=== PATIENT | female | born 1960 | race Caucasian/White ===

== ENCOUNTER 2019-09-02 11:38 | Inpatient (IN) | payer BC ==
--- NOTE | 2019-09-02 12:38 | ED ---
Shortness of Breath - HPI Summary HPI Summary: Patient is a 59 y/o F presenting to the ED for a chief complaint of shortness of breath on exertion and with talking for the last 2 days. Patient is present with her partner. Patient was previously seen in [place] and diagnosed with MAC. Patient was given a treatment plan, but patient declined treatment which she attributes to the success rate of treatment. Patient states she had a two lung CT performed at another facility and was told to follow up with a specialist. Patient saw a noteman in [place] in June and Jul. Pt states she did not like the MD- states was disrespectful and felt she lied. Pt is looking for a new pcp and new pulmonolist in the [place] area - moving here with her sons. Patient denies any aggravating or alleviating factors. Patient reports difficulty in getting an appointment with a PCP. While in [place], patient stated if she didn't get help today would kill her self and she left the [place] - pt was brought immediately back and placed on mental health 1:1. Upon discussion with me, pt states has a history of anxiety and depression. Pt states she thinkgs she might have to stay "is the psych [place]" States feels overwhelmed and stressed. Pt has not attempted self harm Meds reviewed - several supplements - History of Current Complaint Chief Complaint: EDShortnessOfBreath Time Seen by Provider: 09/02/19 12:35 Hx Obtained From: Patient Onset/Duration: Still Present Current Severity: Moderate Dyspnea At: Other - While talking Aggravating Factors: Nothing Alleviating Factors: Nothing Associated Signs & Symptoms: Negative - Allergy/Home Medications Allergies/Adverse Reactions: Allergies Allergy/AdvReac Type Severity Reaction Status Date / Time morphine Allergy Muscle Ache Verified 09/02/19 11:46 Home Medications: Home Medications Albuterol HFA INHALER* [Ventolin HFA Inhaler*] 2 puff INH Q6H PRN 09/02/19 [ History Confirmed 09/02/19] Budesonide/Formote 80/4.5(NF) [Symbicort 80/4.5 (NF)] 1 puff INH BID 09/02/19 [ History Confirmed 09/02/19] Loratadine 10 mg PO DAILY 09/02/19 [History Confirmed 09/02/19] PMH/Surg Hx/FS Hx/Imm Hx Previously Healthy: Yes Endocrine/Hematology History: Denies: Hx Diabetes Cardiovascular History: Denies: Hx Hypercholesterolemia, Hx Hypertension Respiratory History: Reports: Hx Asthma, Other Respiratory Problems/Disorders - Hx MAC Sensory History: Denies: Hx Legally Blind, Hx Deafness Opthamlomology History: Denies: Hx Legally Blind EENT History: Denies: Hx Deafness Psychiatric History: Reports: Hx Anxiety, Hx Depression - Surgical History Surgical History: None Surgery Procedure, Year, and Place: None Infectious Disease History: No Infectious Disease History: Denies: Traveled Outside the [place] in Last 30 Days - Family History Known Family History: Negative: Hypertension, Diabetes - Social History Occupation: Unemployed Lives: With Family Alcohol Use: None Hx Substance Use: No Substance Use Type: Reports: None Hx Tobacco Use: No Smoking Status (MU): Never Smoked Tobacco Review of Systems Constitutional: Negative Positive: Shortness Of Breath Positive: Other - Positive SI All Other Systems Reviewed And Are Negative: Yes Physical Exam - Summary Physical Exam Summary: Vital Signs Reviewed: Yes A+Ox3 intermittnetly suspicious of me and then tearful and accepting help throughout interview Eyes: Conjunctiva Clear, CHARITO. EOM intact and full ENT: Hearing grossly normal mmoist, Neck: Positive: Supple Respiratory: Positive: No respiratory distress, No accessory muscle use + CTA throughout no w/r Cardiovascular: RRR nl s1, s2 no m/r CBT <2 sec abd soft + BS nt/nd no guarding, no distension Musculoskeletal Exam: BASS x 4 without difficulty Strength Intact, ROM Intact Neurological: Positive: Alert, + sensation throughout Psychological: Positive: suspicious, tearful, intermittently angry talking about doctor in [place] Skin: Positive: no rash, no ecchymosis Triage Information Reviewed: Yes Vital Signs On Initial Exam: Initial Vitals Temp Pulse Resp BP Pulse Ox 97.8 F 64 18 140/77 99 09/02/19 11:41 09/02/19 11:41 09/02/19 11:41 09/02/19 11:41 09/02/19 11:41 Vital Signs Reviewed: Yes Procedures - Sedation Patient Received Moderate/Deep Sedation with Procedure: No Diagnostics - Vital Signs Vital Signs Temp Pulse Resp BP Pulse Ox 09/02/19 11:41 97.8 F 64 18 140/77 99 - Laboratory Result Diagrams: 09/02/19 13:25 09/02/19 13:25 Lab Statement: Any lab studies that have been ordered have been reviewed, and results considered in the medical decision making process. - Radiology Chest X-ray Radiology Interpretation Completed By: Radiologist Summary of Radiographic Findings: Chest X-ray IMPRESSION: NO ACTIVE CARDIOPULMONARY DISEASE. EVIDENCE OF EXPOSURE TO GRANULOMATOUS DISEASE. Reviewed by ED physician. Re-Evaluation - Re-Evaluation First Re-Evaluation Time: 13:11 Change: Unchanged Comment: At 13:11, patient is medially cleared for a evaluation. evaluated to see her Second Re-Evaluation Time: 14:10 Change: Unchanged Comment: At 14:10, [facility]erral [facility] made an appointment on the behalf of the patient with Dr. Antunez at 13:00 on 09/07/19 if patient is discharged. labs non concerning. awaiting urine Third Re-Evaluation Time: 14:48 Change: Unchanged Comment: At 14:48, after much discussion, patient agreed to take Cephalexin for her UTI. will admitted to mental health - voluntary Course/Dx - Course Course Of Treatment: Pt presents to ED requesitng evaluation by pulmonology. Pt with a h/o MAC (verified by previousl records from OSH) -declned treatment. Pt moved to [place] and would like to see a specialist. Pt states she thinks about dying if she is unable to get an appointment. Pt state she is feeling overwhlemed. after discusison, pt in agreement to see and mental health evaluation. will check labs reviewed records will work to get her a followup appt with the [facility] - pt in agremeent and comfort with plan - Diagnoses Provider Diagnoses: Adjustment disorder, UTI (urinary tract infection) - Physician Notifications Discussed Care of Patient With: [facility] Referral [facility] Time Discussed With Above Provider: 13:50 - At 13:50, I spoke with Kathy Moreno at the physician referral center who will schedule an appointment for Saturday and will facilitate a pulmonology referral. If patient stays with , appointment will be changed. At 14:44, grocery clerk selling reports that patients case was reviewed by Dr. Eddi Becerril who will admit the patient to [facility] with a diagnosis of adjustment disorder. Discharge ED - Sign-Out/Discharge Documenting (check all that apply): Patient Departure - Admit - Discharge Plan Condition: Stable Disposition: PSYCHIATRIC FACILITY-[facility] - Billing Disposition and Condition Condition: STABLE Disposition: Psychiatric Facility [facility] - Attestation Statements Document Initiated by Scribe: Yes Documenting Scribe: Caitlin Balderas Provider For Whom Scribe is Documenting (Include Credential): Jimena Wills MD Scribe Attestation: Caitlin Julian, scribed for Jimena Wills MD on 09/03/19 at 2044. Scribe Documentation Reviewed: Yes Provider Attestation: The documentation as recorded by the Caitlin ladna accurately reflects the service I personally performed and the decisions made by , Jimena Wills MD Status of Scribe Document: Viewed
[2019-09-02 13:33] LABS: ABS Eosinophils 0.2 10^3/ul (0-0.6); ABS Lymphocytes 1.8 10^3/ul (1.0-4.8); ABS Monocytes 0.5 10^3/ul (0-0.8); ABS Neutrophils 4.7 10^3/ul (1.5-7.7); Eosinophil % 2.2 %; Hematocrit 40 % (35-47); Hemoglobin 13.9 g/dL (12.0-16.0); Lymphocyte % 25.2 %; Mean Corpuscular HGB Conc 34 g/dL (31-36); Mean Corpuscular Hemoglobin 30 pg (27-31); Mean Corpuscular Volume 87 fL (80-97); Mean Platelet Volume 7.6 fL (7.4-10.4); Nucleated Red Blood Cells % 0.1; Platelet Count 306 10^3/uL (150-450); Red Blood Count 4.66 10^6 /uL (3.70-4.87); Red Cell Distribution Width 13 % (10-15); White Blood Count 7.3 10^3/uL (3.5-10.8)
[2019-09-02 13:52] LABS: ALT 49 U/L (7-52); AST 33 U/L (13-39); Albumin 4.6 g/dL (3.2-5.2); Albumin/Globulin Ratio 1.8 (1-3); Alkaline Phosphatase 116 U/L (34-104); Anion Gap 7 mmol/L (2-11); BUN/Creatinine Ratio 10.3 (8-20); Blood Urea Nitrogen 8 mg/dL (6-24); CO2 Carbon Dioxide 27 mmol/L (22-32); Calcium 10.2 mg/dL (8.6-10.3); Chloride 110 mmol/L (101-111); EGFR African American 90.9 (>60); EGFR Non-African American 75.1 (>60); Globulin 2.6 g/dL (2-4); Glucose 93 mg/dL (70-100); Potassium 4.2 mmol/L (3.5-5.0); Sodium 144 mmol/L (135-145); Total Protein 7.2 g/dL (6.4-8.9)
[2019-09-02 13:59] LABS: Urine Appearance Cloudy; Urine Bacteria 1+ (Absent); Urine Bilirubin Negative (Negative); Urine Blood 3+ (Negative); Urine Color Yellow; Urine Glucose Negative (Negative); Urine Ketones Negative (Negative); Urine Nitrite Positive (Negative); Urine Protein 1+(30 mg/dL) (Negative); Urine Red Blood Cell 3+(>10/hpf) (Absent); Urine Specific Gravity 1.012 (1.010-1.030); Urine Squamous Epithelial Cell Present (Absent); Urine Urobilinogen Negative (Negative); Urine White Blood Cell 3+(>20/hpf) (Absent)
[2019-09-02 14:26] LABS: Urine Benzodiazepine Screen Presumptive Positive (None Detect); Urine Opiates Screen None Detected (None Detect)
[2019-09-02 14:46] LABS: Alcohol < 10 mg/dL (<10); Salicylate < 2.50 mg/dL (<30)
[2019-09-02] MEDS ORDERED: Cephalexin CAP* 500 MG PO ONE (14:49)
[2019-09-02 15:01] LABS: TSH (Thyroid Stimulating Horm) 1.73 mcIU/mL (0.34-5.60)
[2019-09-02] MEDS ORDERED: Al Hydrox/Mg Hydrox/Simet LIQ* 30 ML UDC PO PRN (15:17)
[2019-09-02] MEDS ORDERED: Acetaminophen TAB* 325 MG PO PRN (15:17)
[2019-09-02] MEDS ORDERED: Albuterol HFA INHALER* 8 gm MDI INH PRN (15:19)
[2019-09-02 15:26] LABS: Acetaminophen 0 mcg/mL
[2019-09-02] MEDS: Mometasone/Formoter 100/5 MDI INH SCH (18:27)
[2019-09-02] MEDS: Albuterol HFA INHALER* 8 gm MDI INH PRN (23:47)
[2019-09-03] MEDS: Mometasone/Formoter 100/5 MDI INH SCH ×2 (07:15→20:49)
[2019-09-03] MEDS: Albuterol HFA INHALER* 8 gm MDI INH PRN ×2 (09:11→14:31)
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
[2019-09-03] MEDS: Cetirizine* 10 MG TAB PO SCH (10:35)
[2019-09-03 11:55] LABS: HIV 4th Generation Nonreactive (Nonreactive)
[2019-09-03] MEDS: Escitalopram * 10 MG TAB PO SCH (13:09)
[2019-09-04] MEDS: Escitalopram * 10 MG TAB PO SCH (07:59)
[2019-09-04] MEDS: Cetirizine* 10 MG TAB PO SCH (07:59)
[2019-09-04] MEDS: Albuterol HFA INHALER* 8 gm MDI INH PRN ×2 (07:59→13:16)
[2019-09-04] MEDS: Mometasone/Formoter 100/5 MDI INH SCH (08:00)
[2019-09-04 08:37] VITALS: BP 128/66
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
--- NOTE | 2019-09-04 14:52 | CONS ---
CONSULTATION REPORT: DATE OF CONSULT: 09/04/19 REQUESTING PHYSICIAN: Dr. Perla. CONSULTING SERVICE: Infectious Disease. REASON FOR CONSULT: Mycobacterium avium. IMPRESSION: 1. By the patient's report, a history of dyspnea and a chest CT that showed nodular infiltrates in the bilateral lungs and a bronchoscopy with BAL that grew Mycobacterium avium with some level of antibiotic resistance. 2. Dyspnea. Her chest x-ray here is clear. I am not convinced that the degree of nodularity she likely had on her chest CT is total explanation for her dyspnea. 3. Depression. 4. Anxiety. RECOMMENDATIONS: She is going to be discharged from mental health services today and my office will contact her for followup appointment. We will obtain her prior records to review the CT and microbiology results. We discussed that Mycobacterium avium treatment is focused initially on airway clearance and symptom management and that antibiotics may be secondary and that there is no urgency to antibiotic treatment. We discussed that it does not typically progress to a fatal disease, though it can be a long-term problem to manage. HISTORY OF PRESENT ILLNESS: This is a 59-year-old woman admitted with suicidal ideation after a diagnosis of Mycobacterium avium infection. She apparently over a number of months has had dyspnea, some chest pain intermittently. No cough, sputum production, change in the quality of her voice or excessive throat clearing that she is aware of. Because of her dyspnea, she had a CT of the chest, which showed a nodular infiltrate she thinks on the right and the left that led to a bronchoscopy, the BAL grew Mycobacterium avium. Her mobile unit assistant in [place] who performed that procedure recommended antibiotic therapy for 12 to 18 months, which she was told may have low success rate and led her to be quite despondent. Here, chest x- ray showed some calcified granulomas, no infiltrate. She has been afebrile. She has no cough or chest pain. She does have intermittent shortness of breath. She notes that on her trails at home, she can walk a mile with minimal dyspnea. Her weight has been stable. Her energy is low, which is a longstanding issue for her. She does not have fevers, chills, or sweats. PAST MEDICAL HISTORY: 1. Anxiety. 2. Depression. ALLERGIES: MORPHINE caused muscle aches. MEDICATIONS: 1. Tylenol as needed. 2. Tums as needed. 3. Albuterol inhaler as needed. 4. Cetirizine daily. 5. Lexapro daily. 6. Mometasone/formoterol inhaler twice a day. SOCIAL HISTORY: She has been in [place], moving to [place] with her partner. She is a nonsmoker. Does smoke marijuana. FAMILY HISTORY: No recurrent infections. There is emphysema. REVIEW OF SYSTEMS: All negative except as noted above to a 14-point review of systems. PHYSICAL EXAM: Vital Signs: Temperature 37, heart rate 75, respiratory rate 16 , blood pressure 128/66, oxygen saturation 100% on room air. In general, she is awake, not in distress. Neurologic: She is oriented x3. Follows all commands. Moves all her extremities. HEENT: There is no conjunctival hemorrhage. Oropharynx without lesions. Neck is supple without mass. Heart is regular rate and rhythm without murmurs, rubs, or gallops. Lungs are clear to auscultation bilaterally. Abdomen: Soft, nontender, nondistended. There are bowel sounds present. Skin: There is no rash or splinter hemorrhage. LABORATORY DATA: White blood cell count 7, hemoglobin 13, platelets 306. Creatinine is 0.7. ALT 49. Please see impression and recommendations outlined above, which I have discussed with Dr. Perla. Thanks for asking me to see Ms. Calvert in consultation. TIME SPENT: 60 minutes spent [id number], greater than 50% in discussion and counseling regarding her recent Mycobacterium avium diagnosis. [id number]/[facility] #: [id number] MTDD
== END 2019-09-04 15:40 | disposition home or self-care (01) | DRG 751 ==
LOC: ED 11:38 → MERGE 15:17 → BSU 15:17 → ED 17:40
PROVIDERS: ADMIT Psychiatry & Neurology Psychiatry; ATTEND Psychiatry & Neurology Psychiatry
DX: F33.2 Major depressive disorder, recurrent severe without psychotic features (principal); A31.0 Pulmonary mycobacterial infection; R45.851 Suicidal ideations; R06.00 Dyspnea, unspecified; F41.9 Anxiety disorder, unspecified; Z88.5 Allergy status to narcotic agent; Z81.3 Family history of other psychoactive substance abuse and dependence; Z81.8 Family history of other mental and behavioral disorders
CPT/HCPCS: 36415; 71046; 80053; 80307; 80320; 80329; 81003; 81015; 84443; 85025; 87077; 87086; 87186; 87389; 99222; 99238; 99285; A9270-GY; G0480

== ENCOUNTER 2020-01-17 10:05 | Emergency (ER) | payer OTHER ==
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
[2020-01-17 11:24] LABS: ABS Eosinophils 0.1 10^3/ul (0-0.6); ABS Lymphocytes 1.4 10^3/ul (1.0-4.8); ABS Monocytes 0.4 10^3/ul (0-0.8); ABS Neutrophils 2.4 10^3/ul (1.5-7.7); Eosinophil % 2.7 %; Hematocrit 39 % (35-47); Hemoglobin 13.5 g/dL (12.0-16.0); Lymphocyte % 32.6 %; Mean Corpuscular HGB Conc 34 g/dL (31-36); Mean Corpuscular Hemoglobin 30 pg (27-31); Mean Corpuscular Volume 86 fL (80-97); Mean Platelet Volume 7.8 fL (7.4-10.4); Nucleated Red Blood Cells % 0.1; Platelet Count 290 10^3/uL (150-450); Red Blood Count 4.55 10^6 /uL (3.70-4.87); Red Cell Distribution Width 14 % (10-15); White Blood Count 4.3 10^3/uL (3.5-10.8)
[2020-01-17 11:40] LABS: Albumin 4.5 g/dL (3.2-5.2); Albumin/Globulin Ratio 1.7 (1-3); BUN/Creatinine Ratio 16.8 (8-20); C Reactive Protein 1.92 mg/L (<8.01); Calcium 10.4 mg/dL (8.6-10.3); EGFR African American 72.1 (>60); EGFR Non-African American 59.6 (>60); Globulin 2.6 g/dL (2-4); Influenza A Molecular Negative (Negative); Influenza B Molecular Negative (Negative); Potassium 4.4 mmol/L (3.5-5.0); Total Bilirubin 0.5 mg/dL (0.2-1.0); Total Protein 7.1 g/dL (6.4-8.9)
--- OUTSIDE RECORDS SUMMARY | 2020-01-17 12:25 | XMS REPORT | Continuity of Care Document ---
:1960 External Reference #:[id number] Author Name Ainsley Parr MD (transmitted by agent of provider Hellen Clifford) Address [address] 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 Problems Description No Information Available Social History Type Date Description Comments Sex Unknown ETOH Use Denies alcohol use Tobacco Use Start: Unknown Patient has never smoked Recreational Drug Use Regularly uses Marijuana Smoking Status Reviewed: 11/23/19 Patient has never smoked Exercise Type/Frequency Exercises regularly Allergies, Adverse Reactions, Alerts Active Allergies Reaction Severity Comments Date Morphine 10/08/2019 Codeine 10/08/2019 Inactive Allergies NKDA 10/08/2019 Medications Active Medications SIG Qnty Indications Ordering Provider Date Certavite/Antioxidan take one daily 30tabs Alexandra Vega, 11/06/2019 ts DO Tablets Vitamin C Immune take one daily 30units Alexandra Vega, 11/06/2019 Health DO 500mg Chewtabs Montelukast Sodium 1 by mouth every 30tabs Swati 10/26/2019 night PAU Lucero 10mg Tablets Ibuprofen 1 by mouth twice 20tabs Bairon D. 10/08/2019 600mg daily if needed Garth Dai Tablets Loratadine once a day for Unknown 10mg allergies as Capsules needed CBD Oil Unknown Immunizations Description No Information Available Vital Signs Date Vital Result Comment 11/23/2019 12:38pm Height 62 inches 5'2" Weight 149.00 lb Heart Rate 67 /min BP Systolic Sitting 122 mmHg BP Diastolic Sitting 78 mmHg O2 % BldC Oximetry 97 % BMI (Body Mass Index) 27.2 kg/m2 10/23/2019 10:40am Height 62 inches 5'2" Weight 140.00 lb Heart Rate 67 /min BP Systolic Sitting 140 mmHg BP Diastolic Sitting 80 mmHg O2 % BldC Oximetry 98 % BMI (Body Mass Index) 25.6 kg/m2 Results Test Acquired Date Facility Test Result H/L Range Note Laboratory test 10/23/2019 [facility] Alpha 1 121 mg/dL 100 - 190 [address] Antitry[place] A1a [place] [address] [phone] Anti Nuclear Antibody 0.2 U 2 Anca Panel For 10/23/2019 [facility] Myeloperoxidase AB < 0.2 U [address] [place] [address] [phone] Proteinase 3 AB < 0.2 U 4 CBC Auto 10/23/2019 [facility] White Blood 4.8 10^3/uL Normal 3.5-10.[address] [place] [address] [phone] Red Blood Count 4.51 10^6/uL Normal 3.70-4.87 Hemoglobin 13.7 g/dL Normal 12.0-16.0 Hematocrit 39 % Normal 35-47 Mean Corpuscular Volume 87 fL Normal 80-97 Mean Corpuscular Hemoglobin 30 pg Normal 27-31 Mean Corpuscular HGB Conc 35 g/dL Normal 31-36 Red Cell Distribution Width 13 % Normal 10-15 Platelet Count 335 10^3/uL Normal 150-450 Mean Platelet Volume 8.1 fL Normal 7.4-10.4 Abs Neutrophils 2.7 10^3/uL Normal 1.5-7.7 Abs Lymphocytes 1.7 10^3/uL Normal 1.0-4.8 Abs Monocytes 0.3 10^3/uL Normal 0-0.8 Abs Eosinophils 0.1 10^3/uL Normal 0-0.6 Abs Basophils 0.0 10^3/uL Normal 0-0.2 Abs Nucleated RBC 0.0 10^3/uL Granulocyte % 56.6 % Lymphocyte % 34.8 % Monocyte % 6.5 % Eosinophil % 1.6 % Basophil % 0.5 % Nucleated Red Blood Cells % 0.1 Laboratory test 10/23/2019 [facility] C Reactive 1.01 Normal < 8.[address] Protein mg/L [place], [place] [id number] [phone] Hypersensitivity 10/23/2019 [facility] Aspergillus 53.6 <= 102 [address] fumigatus IgG mg/[place] [address] Ab [phone] Micropolyspora faeni IgG Ab 2.9 mg/L <=13.2 6 Thermoactinomyces vulgaris IgG 5.8 mg/L <=23.9 7 Immunoglobulins 10/23/2019 [facility] Immunoglobulin G 671 Abnormal 767 - 8 Serum Quant [address] mg/dL 1590 [place] [address] [phone] Immunoglobulin M 92 mg/dL 37 - 286 Laboratory test 10/23/2019 [facility] Immunoglobulin E 33.4 kU/ L <= 214 [address] (Ige) [place] [address] [phone] Immunoglobulin A 170 mg/dL 61 - 356 Rheumatoid Factor < 10 IU/mL Normal <15 1 Test Performed by: [facility] [place] [address] Wheel Worker: Jeremie Jaffe M.D. Ph.D.; CLIA# [id number] 2 REFERENCE VALUE <=1.0 (Negative) Test Performed by: [facility] [place] [address] Wheel Worker: Jeremie Jaffe M.D. Ph.D.; CLIA# [id number] 3 REFERENCE VALUE <0.4 (Negative) 4 REFERENCE VALUE <0.4 (Negative) Test Performed by: [facility] [place] [address] Wheel Worker: Jeremie Jaffe M.D. Ph.D.; CLIA# [id number] 5 ADDITIONAL INFORMATION This test was developed and its performance characteristics determined by [facility] [place] in a manner consistent with CLIA requirements. This test has not been cleared or approved by the U.S. Food and Drug Administration. 6 ADDITIONAL INFORMATION This test was developed and its performance characteristics determined by [facility] [place] in a manner consistent with CLIA requirements. This test has not been cleared or approved by the U.S. Food and Drug Administration. 7 ADDITIONAL INFORMATION This test was developed and its performance characteristics determined by [facility] [place] in a manner consistent with CLIA requirements. This test has not been cleared or approved by the U.S. Food and Drug Administration. Test Performed by: [place] [address] Wheel Worker: Jeremie Jaffe M.D. Ph.D.; CLIA# [id number] 8 Test Performed by: [place] [address] Wheel Worker: Jeremie Jaffe M.D. Ph.D.; CLIA# [id number] Test Performed by: [place] [address] Wheel Worker: Jeremie Jaffe M.D. Ph.D.; CLIA# [id number] Procedures Date Code Description Status 11/12/2019 59009 Sleep Study Unattended,HRT Rate,Oxygen Sat,Resp Completed Effort/Airflow 06/04/2019 35050901 Colonoscopy Completed Medical Devices Description No Information Available Encounters Type Date Location Provider Dx Diagnosis Office Visit 11/23/2019 [facility] Jaxon Scott.8 Other nonspecific 3:30p [facility] Of abnormal finding of Hiv Cts Specialist lung field A31.0 Pulmonary mycobacterial infection J45.909 Unspecified asthma, uncomplicated G47.33 Obstructive sleep apnea (adult) (pediatric) Office Visit 10/23/2019 11:00a [facility] Ainsley R91.8 Other nonspecific Sleep Services Of MD Karolyn abnormal finding Hiv Cts Specialist of lung field A31.0 Pulmonary mycobacterial infection J45.909 Unspecified asthma, uncomplicated R06.83 Snoring J41.0 Simple chronic bronchitis Office Visit 10/08/2019 [facility] Bairon Vegas A31.0 Pulmonary 2:40p For Infectious Garth Dai mycobacterial Diseases infection R91.8 Other nonspecific abnormal finding of lung field Office Visit 10/08/2019 8:20a Hiv Cts Specialist Internal Alexandra A31.0 Pulmonary Medicine - DO Gary mycobacterial [address] infection Z12.31 Encntr screen mammogram for malignant neoplasm of breast H53.8 Other visual disturbances Office Visit 09/04/2019 [facility] Bairon [place] A31.0 Pulmonary 10:04a For Infectious Garth Dai mycobacterial Diseases infection R06.00 Dyspnea, unspecified F32.9 Major depressive disorder, single episode, unspecified Assessments Date Code Description Provider 11/23/2019 R91.8 Other nonspecific abnormal finding of Ainsley Parr MD lung field 11/23/2019 A31.0 Pulmonary mycobacterial infection Ainsley Parr MD 11/23/2019 J45.909 Unspecified asthma, uncomplicated Ainsley Parr MD 11/23/2019 G47.33 Obstructive sleep apnea (adult) Ainsley Parr MD (pediatric) 10/23/2019 R91.8 Other nonspecific abnormal finding of Ainsley Parr MD lung field 10/23/2019 A31.0 Pulmonary mycobacterial infection Ainsley Parr MD 10/23/2019 J45.909 Unspecified asthma, uncomplicated Ainsley Parr MD 10/23/2019 R06.83 Snoring Ainsley Parr MD 10/23/2019 J41.0 Simple chronic bronchitis Ainsley Parr MD 10/08/2019 A31.0 Pulmonary mycobacterial infection Bairon Dai M.D. 10/08/2019 A31.0 Pulmonary mycobacterial infection Alexandra Vega DO 10/08/2019 R91.8 Other nonspecific abnormal finding of Bairon Dai M.D. lung field 10/08/2019 Z12.31 Encounter for screening mammogram for Alexandra Vega, malignant neoplasm of breast 10/08/2019 H53.8 Other visual disturbances Alexandra Gary, DO 09/04/2019 A31.0 Pulmonary mycobacterial infection Bairon Dai M.D. 09/04/2019 R06.00 Dyspnea, unspecified Bairon Dai M.D. 09/04/2019 F32.9 Major depressive disorder, single Bairon Dai M.D. episode, unspecified Plan of Treatment Future Appointment(s):01/07/2020 3:30 pm - Ainsley Parr MD at [facility]01/07/2020 1:20 pm - Bairon Dai M.D. at [facility]25/20/2020 - Ainsley Parr, MDR91.8 Other nonspecific abnormal finding of lung fieldFollow up:6 etkhfC16.0 Pulmonary mycobacterial ntadewnnqF87.909 Unspecified asthma, obaqyyzxevamzW02.33 Obstructive sleep apnea (adult) (pediatric) Functional Status Description No Information Available Mental Status Description No Information Available Referrals Refer to Dr Reason for Referral Status Appt Wolf Campos MD Sent [address] [place], [place] [id number] [phone] Bairon Dai MD Scheduled 01/07/[address] [place] [address] [place] [address] [phone] Michael Kelyl MD Pending OV note to be signed. Triage sent. 10/16/19 Sent [facility] [place] [address] [phone] Ainsley Parr MD 59 year old woman with diagnosis of ARIEL by Sent 2018 bronchoscopy new lung lesions [address] [place] [id number] [phone]
--- OUTSIDE RECORDS SUMMARY | 2020-01-17 12:25 | XMS REPORT | Continuity of Care Document ---
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 Problems Description No Information Available Social History Type Date Description Comments Sex Unknown ETOH Use Denies alcohol use Tobacco Use Start: Unknown Patient has never smoked Recreational Drug Use Regularly uses Marijuana Smoking Status Reviewed: 01/07/20 Patient has never smoked Exercise Type/Frequency Exercises regularly Allergies, Adverse Reactions, Alerts Active Allergies Reaction Severity Comments Date Morphine 10/08/2019 Codeine 10/08/2019 Inactive Allergies NKDA 10/08/2019 Medications Active Medications SIG Qnty Indications Ordering Date Provider Ulysses Allergy & 1 by mouth twice a 60tabs Alexandra Vega, 12/21/2019 Congestion day DO 5-120mg Tablets ER 12HR Symbicort inhale two puffs 30.6gm Ainsley Parr, 11/23/2019 by mouth twice a 80-4.5mcg/Act day Aerosol Ventolin HFA 1 to 2 inhalations 18gm Ainsley Parr, 11/23/2019 every 4 hours as 108(90Base) mcg/Act needed Aerosol Certavite/Antioxidan take one daily 30tabs Bowen Antunez MD 11/06/2019 ts Tablets Vitamin C Immune take one daily 30units Alexandra Vega, 11/06/2019 Health DO 500mg Chewtabs Montelukast Sodium take 1 tablet by 30tabs Swati 10/26/2019 mouth every Jazmine, [employer]CRA[employer]ESS [employer] 10mg Tablets evening Ibuprofen 1 by mouth twice 40tabs Bowen Antunez MD 10/08/2019 600mg daily if needed Tablets Loratadine once a day for Unknown 10mg allergies as Capsules needed CBD Oil Unknown Bupropion take 1 tablet by Unknown Hydrochloride ER mouth once daily (XL) 150mg Tablets ER 24HR Diazepam take 1 tablet by Unknown 5mg Tablets mouth twice a day maximum daily dose of 2 Immunizations Description No Information Available Vital Signs Date Vital Result Comment 01/07/2020 2:44pm Height 62 inches 5'2" Weight 152.00 lb Heart Rate 89 /min BP Systolic Sitting 136 mmHg BP Diastolic Sitting 60 mmHg O2 % BldC Oximetry 96 % BMI (Body Mass Index) 27.8 kg/m2 11/23/2019 12:38pm Height 62 inches 5'2" Weight 149.00 lb Heart Rate 67 /min BP Systolic Sitting 122 mmHg BP Diastolic Sitting 78 mmHg O2 % BldC Oximetry 97 % BMI (Body Mass Index) 27.2 kg/m2 Results Test Acquired Date Facility Test Result H/L Range Note CBC Auto 12/02/2019 [facility] White Blood 4.9 10^3/uL Normal 3.5-10.[address] [place] [address] [phone] Red Blood Count 4.49 10^6/uL Normal 3.70-4.87 Hemoglobin 13.6 g/dL Normal 12.0-16.0 Hematocrit 39 % Normal 35-47 Mean Corpuscular Volume 86 fL Normal 80-97 Mean Corpuscular Hemoglobin 30 pg Normal 27-31 Mean Corpuscular HGB Conc 35 g/dL Normal 31-36 Red Cell Distribution Width 13 % Normal 10-15 Platelet Count 285 10^3/uL Normal 150-450 Mean Platelet Volume 8.6 fL Normal 7.4-10.4 Abs Neutrophils 2.5 10^3/uL Normal 1.5-7.7 Abs Lymphocytes 1.9 10^3/uL Normal 1.0-4.8 Abs Monocytes 0.4 10^3/uL Normal 0-0.8 Abs Eosinophils 0.1 10^3/uL Normal 0-0.6 Abs Basophils 0.0 10^3/uL Normal 0-0.2 Abs Nucleated RBC 0.0 10^3/uL Granulocyte % 51.7 % Lymphocyte % 37.7 % Monocyte % 7.6 % Eosinophil % 2.6 % Basophil % 0.4 % Nucleated Red Blood Cells % 0.0 Laboratory test 12/02/2019 [facility] Alternaria tenuis <0.35 kU /L [address] [place] [address] [phone] Silver Birch IgE <0.35 kU/L 2 Cat Epithelium Allergen IgE <0.35 kU/L 3 Cladosporium herbarum IgE <0.35 kU/L 4 Dermatophagoides farinae IgE <0.35 kU/L 5 Dermatophagoides pteronyssinus <0.35 kU/L 6 Dog Dander Allergen IgE <0.35 kU/L 7 Underwood Allergen IgE <0.35 kU/L 8 [place] Tree Allergen IgE <0.35 kU/L 9 Giant Ragweed Allergen IgE <0.35 kU/L 10 [place] Tree Allergen IgE <0.35 kU/L 11 Melecio Grass Allergen IgE <0.35 kU/L 12 Aspergilus [place] Ige Allergen QL <0.35 kU/L 13 Immunoglobulin E (Ige) 37.7 kU/L <= 214 14 Immunoglobulins 12/02/2019 [facility] Immunoglobulin G 667 Abnormal 767 - 15 Serum Quant [address] mg/dL 1590 [place] [address] [phone] Immunoglobulin M 90 mg/dL 37 - 286 Immunoglobulin A 166 mg/dL 61 - 356 T&B Cell 12/02/2019 [facility] CD45 Total 1.60 thou/mcL 0.82- 2.[address] [place] [address] [phone] Percent CD3 Cells (T Cells) 73 % 58-86 Percent CD19 Cells (B Cells) 10 % 3-24 % CD16+CD56 Cells (NK Cells) 16 % 5-28 Percent CD4 Cell (T Cell) 54 % 32-64 Percent CD8 Cells (T Cells) 25 % 8-40 CD3 (T Cells) 1168 cells/L 550-2202 CD19 (B Cells) 161 cells/L 45-409 CD16+CD56 Count (NK cells) 255 cells/L 59-513 CD4 (T Cell) 864 cells/L 365-1437 CD8 (T Cell) 403 cells/L 80-846 4/8 Ratio 2.1 >=0.9 T B Cell Comment See Comment 16 Diptheria Igg 12/02/2019 [facility] Diphtheria IgG Positive [address] [place] [address] [phone] Diphtheria IgG Value 0.05 IU/mL 18 Tetanus Toxoid Igg 12/02/2019 [facility] Tetanus Toxoid Positive 19 Antibody,S [address] [place] [address] [phone] Tetanus Toxoid IgG Value 1.29 IU/mL 20 S.Pneumoniae Igg 12/02/2019 [facility] S. pneumoniae 3.7 g/mL >=2.3 AB [address] Type 1 [place] [address] [phone] S. pneumoniae Type 2 IgG AB 0.7 g/mL >=1.0 S. pneumoniae Type 3 IgG AB 1.1 g/mL >=1.8 S. pneumoniae Type 4 IgG AB 6.7 g/mL >=0.6 S. pneumoniae Type 5 IgG AB 3.7 g/mL >=10.7 S. pneumoniae Type 8 IgG AB 2.9 g/mL >=2.9 S. pneumoniae Type 9N IgG AB 3.6 g/mL >=9.2 S. pneumoniae Type 12F IgG AB 0.4 g/mL >=0.6 S. pneumoniae Type 14 IgG AB 2.7 g/mL >=7.0 S. pneumoniae Type 17F IgG AB 3.9 g/mL >=7.8 S. pneumoniae Type 19F IgG AB 13.4 g/mL >=15.0 S. pneumoniae Type 20 IgG AB 1.9 g/mL >=1.3 S. pneumoniae Type 22F IgG AB 16.6 g/mL >=7.2 S. pneumoniae Type 23F IgG AB 14.8 g/mL >=8.0 S. pneumoniae Type 6B IgG AB 3.9 g/mL >=4.7 S. pneumoniae Type 10A IgG AB 5.7 g/mL >=2.9 S. pneumoniae Type 11A IgG AB 1.0 g/mL >=2.4 S. pneumoniae Type 7F IgG AB 8.0 g/mL >=3.2 S. pneumoniae Type 15B IgG AB 7.3 g/mL >=3.3 S. pneumoniae Type 18C IgG AB 3.2 g/mL >=3.3 S. pneumoniae Type 19A IgG AB 43.0 g/mL >=17.1 S. pneumoniae Type 9V IgG AB 23.2 g/mL >=2.6 S. pneumoniae Type 33F IgG AB 12.2 g/mL >=1.7 21 Lymphocyte 12/02/2019 [facility] Mitogens See Comment 22 Proliferation PNL [address] [place] [address] [phone] Viab of Lymphs at Day 0 72.7 % Abnormal >=75.0 Max Prolif of PWM as %CD45 18.4 % >=4.5 Max Prolif of PWM as %CD3 18.9 % >=3.5 Max Prolif of PWM as %CD19 32.0 % >=3.9 Max Prolif of Pha as %CD45 67.5 % >=49.9 Max Prolif of Pha as %CD3 71.2 % >=58.5 23 Laboratory test 10/23/2019 [facility] Alpha 1 121 mg/dL 100 - [address] Antitrypsin A1a 190 [place] [address] [phone] Anti Nuclear Antibody 0.2 U 25 Anca Panel For 10/23/2019 [facility] Myeloperoxidase AB < 0.2 U [address] [place] [address] [phone] Proteinase 3 AB < 0.2 U 27 CBC Auto 10/23/2019 [facility] White Blood 4.8 10^3/uL Normal 3.5-10.[address] [place] [address] [phone] Red Blood Count 4.51 10^6/uL Normal 3.70-4.87 [...] Blood Cells % 0.1 Laboratory test 10/23/2019 [facility] C Reactive 1.01 Normal < 8.[address] Protein mg/[place] [address] [phone] Hypersensitivity 10/23/2019 [facility] Aspergillus 53.6 <= 102 [address] fumigatus IgG mg/[place] [address] Ab [phone] Micropolyspora faeni IgG Ab 2.9 mg/L <=13.2 29 Thermoactinomyces vulgaris IgG 5.8 mg/L <=23.9 30 Immunoglobulins 10/23/2019 [facility] Immunoglobulin G 671 Abnormal 767 - 31 Serum Quant [address] mg/dL 1590 [place], [place] [address] [phone] Immunoglobulin M 92 mg/dL 37 - 286 Laboratory test 10/23/2019 [facility] Immunoglobulin E 33.4 kU/ L <= [address] (Ige) [place] [address] [phone] Immunoglobulin A 170 mg/dL 61 - 356 Rheumatoid Factor < 10 IU/mL Normal <15 1 Class 0 (Negative <0.35) Test Performed by: [place] [address] Software Firmware Engineer: Jeremie Jaffe M.D. Ph.D.; CLIA# [id number] 2 Class 0 (Negative <0.35) Test Performed by: [place] [address] Software Firmware Engineer: Jeremie Jaffe M.D. Ph.D.; CLIA# [id number] 3 Class 0 (Negative <0.35) Test Performed by: [place] [address] Software Firmware Engineer: Jeremie Jaffe M.D. Ph.D.; CLIA# [id number] 4 Class 0 (Negative <0.35) Test Performed by: [place] [address] Software Firmware Engineer: Jeremie Jaffe M.D. Ph.D.; CLIA# [id number] 5 Class 0 (Negative <0.35) Test Performed by: [place] [address] Software Firmware Engineer: Jeremie Jaffe M.D. Ph.D.; CLIA# [id number] 6 Class 0 (Negative <0.35) Test Performed by: [place] [address] Software Firmware Engineer: Jeremie Jaffe M.D. Ph.D.; CLIA# [id number] 7 Class 0 (Negative <0.35) Test Performed by: [place] [address] Software Firmware Engineer: Jeremie Jaffe M.D. Ph.D.; CLIA# [id number] 8 Class 0 (Negative <0.35) Test Performed by: [place] [address] Software Firmware Engineer: Jeremie Jaffe M.D. Ph.D.; CLIA# [id number] 9 Class 0 (Negative <0.35) Test Performed by: [place] [address] Software Firmware Engineer: Jeremie Jaffe M.D. Ph.D.; CLIA# [id number] 10 Class 0 (Negative <0.35) Test Performed by: [place] [address] Software Firmware Engineer: Jeremie Jaffe M.D. Ph.D.; CLIA# [id number] 11 Class 0 (Negative <0.35) Test Performed by: [place] [address] Software Firmware Engineer: Jeremie Jaffe M.D. Ph.D.; CLIA# [id number] 12 Class 0 (Negative <0.35) Test Performed by: [place] [address] Software Firmware Engineer: Jeremie Jaffe M.D. Ph.D.; CLIA# [id number] 13 Class 0 (Negative <0.35) Test Performed by: [place] [address] Software Firmware Engineer: Jeremie Jaffe M.D. Ph.D.; CLIA# [id number] 14 Test Performed by: [place] [address] Software Firmware Engineer: Jeremie Jaffe M.D. Ph.D.; CLIA# [id number] 15 Test Performed by: [place] [address] Software Firmware Engineer: Jeremie Jaffe M.D. Ph.D.; CLIA# [id number] 16 RESULT: Reviewed by: Job Reyes M.D. ADDITIONAL INFORMATION Reference values implemented February 24, 2013. This test was developed using an analyte specific reagent. Its performance characteristics were determined by [facility] in a manner consistent with CLIA requirements. This test has not been cleared or approved by the U.S. Food and Drug Administration. Test Performed by: [facility] - [address] [address] Software Firmware Engineer: Jeremie Jaffe M.D. Ph.D.; CLIA# [id number] 17 REFERENCE VALUE Vaccinated: Positive (>= 0.01 IU/mL) Unvaccinated: Negative (< 0.01 IU/mL) 18 ADDITIONAL INFORMATION This test was developed and its performance characteristics determined by [facility] in a manner consistent with CLIA requirements. This test has not been cleared or approved by the U.S. Food and Drug Administration. Test Performed by: [facility] [place] [address] Software Firmware Engineer: Jeremie Jaffe M.D. Ph.D.; CLIA# [id number] 19 REFERENCE VALUE Vaccinated: Positive (>= 0.01 IU/mL) Unvaccinated: Negative (< 0.01 IU/mL) 20 ADDITIONAL INFORMATION This test was developed and its performance characteristics determined by [facility] in a manner consistent with CLIA requirements. This test has not been cleared or approved by the U.S. Food and Drug Administration. Test Performed by: [facility] [place] [address] Software Firmware Engineer: Jeremie Jaffe M.D. Ph.D.; CLIA# [id number] 21 Either of the two following conditions would be consistent with a normal response to Streptococcus pneumoniae vaccination: Antibody concentrations greater than or equal to the reference value for at least 50% of serotypes in either a pre- or post-vaccination sample. Antibody concentrations increased by 2-fold or greater for at least 50% of serotypes when comparing the pre- to the post-vaccination results. Optimal cut-offs (reference values) were derived by measuring serotype-specific IgG antibody levels in an adult cohort of 100 healthy individuals (previously unvaccinated) before and after pneumococcal vaccination and identifying the antibody level for each serotype that included the largest number of individuals with a negative response (below cut-off) pre-vaccination and a positive response (above cut-off) post-vaccination. ADDITIONAL INFORMATION All 23 serotypes assessed by this assay are included in the Pneumovax 23 vaccine. IgG antibody concentrations following Pneumovax 23 administration are a reflection of an individual's humoral immune response to polysaccharide antigens. Serotypes 1, 3, 4, 5, 6A (6), 14, 19F (19), 23F (23), 6B (26), 7F (51), 18C (56), 19A (57) and 9V (68) are included in the Prevnar-13 conjugate vaccine. Antibody concentrations following Prevnar-13 administration are a reflection of an individual's response to protein-conjugated antigens. Serotypes 2, 8, 9N (9), 12F (12), 17F (17), 20, 22F (22), 10A (34), 11A (43), 15B (54) and 33F (70) are present only in the Pneumovax 23 vaccine and not in Prevnar-13. Responses to these 11 serotypes are a reflection of an individual's response to polysaccharide antigens. Serotype 6A is only present in Prevnar-13. This test was developed and its performance characteristics determined by [facility] in a manner consistent with CLIA requirements. This test has not been cleared or approved by the U.S. Food and Drug Administration. Test Performed by: [facility] [address] [place] [address] Software Firmware Engineer: Jeremie Jaffe M.D. Ph.D.; CLIA# [id number] 22 Normal lymphocyte proliferative responses to PHA and PWM. Day 0 viability for this patient was mildly below the reference cut-off value of >= 75%, but it did not affect the normal proliferative responses to PHA and PWM. Time elapsed from sample collection to arrival in the laboratory and/or transportation conditions may influence day 0 viability. Reviewed by: Job Reyes M.D. ADDITIONAL INFORMATION Reference values implemented November 22, 2010. Data are expressed as % proliferating cells of total specific cell population. The % Day 0 viability of the sample was determined using a flow cytometry assay which includes individual assessment of viable, apoptotic and cells. This method differs from the commonly used method of trypan blue dye exclusion which only identifies cells, and counts apoptotic cells along with the viable cells, resulting in an apparent higher cell viability. However, apoptotic cells do not contribute to cell proliferation and therefore accurate measurement of only viable cells provides meaningful information on the cells involved in stimulation and proliferative response. Strongly recommend using "critical ambient shipping boxes" available through [facility] ([facility]) inventory to ensure optimal transport of critical samples used for functional cellular assays. This test was developed using an analyte specific reagent. Its performance characteristics were determined by [facility] in a manner consistent with CLIA requirements. This test has not been cleared or approved by the U.S. Food and Drug Administration. 23 Test Performed by: [place] [id number] Software Firmware Engineer: Jeremie Jaffe M.D. Ph.D.; CLIA# [id number] 24 Test Performed by: [place] [address] Software Firmware Engineer: Jeremie Jaffe M.D. Ph.D.; CLIA# [id number] 25 REFERENCE VALUE <=1.0 (Negative) Test Performed by: [facility] [place] [address] Software Firmware Engineer: Jeremie Jaffe M.D. Ph.D.; CLIA# [id number] 26 REFERENCE VALUE <0.4 (Negative) 27 REFERENCE VALUE <0.4 (Negative) Test Performed by: [facility] [place] [address] Software Firmware Engineer: Jeremie Jaffe M.D. Ph.D.; CLIA# [id number] 28 ADDITIONAL INFORMATION This test was developed and its performance characteristics determined by [facility] in a manner consistent with CLIA requirements. This test has not been cleared or approved by the U.S. Food and Drug Administration. 29 ADDITIONAL INFORMATION This test was developed and its performance characteristics determined by [facility] in a manner consistent with CLIA requirements. This test has not been cleared or approved by the U.S. Food and Drug Administration. 30 ADDITIONAL INFORMATION This test was developed and its performance characteristics determined by [facility] in a manner consistent with CLIA requirements. This test has not been cleared or approved by the U.S. Food and Drug Administration. Test Performed by: [place] [address] Software Firmware Engineer: Jeremie Jaffe M.D. Ph.D.; CLIA# [id number] 31 Test Performed by: [place] [address] Software Firmware Engineer: Jeremie Jaffe M.D. Ph.D.; CLIA# [id number] 32 Test Performed by: [place] [address] Software Firmware Engineer: Jeremie Jaffe M.D. Ph.D.; CLIA# [id number] Procedures Date Code Description Status 11/12/2019 81373 Sleep Study Unattended,HRT Rate,Oxygen Sat,Resp Completed Effort/Airflow 10/26/2019 32225930 Mammogram Completed 06/04/2019 43605059 Colonoscopy Completed Medical Devices Description No Information Available Encounters Type Date Location Provider Dx Diagnosis Office Visit 01/07/2020 [facility] And Ainsley Parr, G47.33 Obstructive sleep 3:00p Sleep Services Of apnea (adult) Adult Educator (pediatric) R91.8 Other nonspecific abnormal finding of lung field J45.909 Unspecified asthma, uncomplicated Office Visit 11/23/2019 3:30p Pulmonology And Ainsley R91.8 Other nonspecific Sleep Services Of MD Karolyn abnormal finding Adult Educator of lung field A31.0 Pulmonary mycobacterial infection J45.909 Unspecified asthma, uncomplicated G47.33 Obstructive sleep apnea (adult) (pediatric) Office Visit 10/23/2019 11:00a Pulmonology And Ainsley R91.8 Other nonspecific Sleep Services Of MD Karolyn abnormal finding Adult Educator of lung field A31.0 Pulmonary mycobacterial infection J45.909 Unspecified asthma, uncomplicated R06.83 Snoring J41.0 Simple chronic bronchitis [facility] 2:40p For Infectious Garth Dai mycobacterial Diseases infection R91.8 Other nonspecific abnormal finding of lung field Office Visit 10/08/2019 8:20a [facility] Internal Alexandra A31.0 Pulmonary Medicine - DO Gary mycobacterial [address] R infection Z12.31 Encntr screen mammogram for malignant neoplasm of breast H53.8 Other visual disturbances Office Visit 09/04/2019 [facility] Bairon [place] A31.0 Pulmonary 10:04a For Infectious Garth Dai mycobacterial Diseases infection R06.00 Dyspnea, unspecified F32.9 Major depressive disorder, single episode, unspecified Assessments Date Code Description Provider 01/07/2020 G47.33 Obstructive sleep apnea (adult) Ainsley Parr MD (pediatric) 01/07/2020 R91.8 Other nonspecific abnormal finding of Ainsley Parr MD lung field 01/07/2020 J45.909 Unspecified asthma, uncomplicated Ainsley Parr MD 11/23/2019 R91.8 Other nonspecific abnormal finding of Ainsley Parr MD lung field 11/23/2019 A31.0 Pulmonary mycobacterial infection Ainsley Parr MD 11/23/2019 J45.909 Unspecified asthma, uncomplicated Ainsley Parr MD 11/23/2019 G47.33 Obstructive sleep apnea (adult) Ainsley Parr MD (pediatric) 11/12/2019 G47.33 Obstructive sleep apnea (adult) Ainsley Parr [...] M.D. 10/08/2019 A31.0 Pulmonary mycobacterial infection Alexandra Gary, 10/08/2019 R91.8 Other nonspecific abnormal finding of Bairon Dai M.D. lung field 10/08/2019 Z12.31 Encounter for screening mammogram for Alexandra Vega, malignant neoplasm of breast 10/08/2019 H53.8 Other visual disturbances Alexandra Vega DO 09/04/2019 A31.0 Pulmonary mycobacterial infection Bairon Dai M.D. 09/04/2019 R06.00 Dyspnea, unspecified Bairon Dai M.D. 09/04/2019 F32.9 Major depressive disorder, single Bairon Dai M.D. episode, unspecified Plan of Treatment Future Appointment(s):04/07/2020 3:30 pm - Ainsley Parr MD at [facility]01/13/2020 11:10 am - Bairon Dai M.D. at [facility] For Infectious Jsgcvnvt59/05/2020 - Ainsley Parr MDG47.33 Obstructive sleep apnea (adult) (pediatric)Follow up:3 gunfiqU88.8 Other nonspecific abnormal finding of lung zhmzfM03.909 Unspecified asthma, uncomplicated Functional Status Description No Information Available Mental Status Description No Information Available Referrals Refer to Dr Reason for Referral Status Appt Date Wolf Campos MD Sent [address] [place] [address] [place] [address] [phone] Bairon Dai MD Scheduled 01/07/[address] [place] [address] [place] [address] [phone] Michael Kelly MD Pending OV note to be signed. Triage sent. 10/16/19 Sent [facility] [place] [address] [phone] Ainsley Parr MD 59 year old woman with diagnosis of ARIEL by Sent 2018 bronchoscopy new lung lesions [address] [place] [address] [phone]
--- OUTSIDE RECORDS SUMMARY | 2020-01-17 12:25 | XMS REPORT | Continuity of Care Document ---
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 White Blood 4.9 10^3/uL Normal 3.5-10.[address] [place] [address] [phone] Red Blood Count 4.49 10^6/uL Normal 3.70-4.87 [...] Blood Cells % 0.0 Laboratory test 12/02/2019 [facility] Alternaria tenuis <0.35 kU /L [address] [place] [address] [phone] Silver Birch IgE <0.35 kU/L 2 Cat Epithelium Allergen IgE <0.35 kU/L 3 Cladosporium herbarum IgE <0.35 kU/L 4 Dermatophagoides farinae IgE <0.35 kU/L 5 Dermatophagoides pteronyssinus <0.35 kU/L 6 Dog Dander Allergen IgE <0.35 kU/L 7 [place] Allergen IgE <0.35 kU/L 8 [place] Tree Allergen IgE <0.35 kU/L 9 Giant Ragweed Allergen IgE <0.35 kU/L 10 [place] Tree Allergen IgE <0.35 kU/L 11 Melecio Grass Allergen IgE <0.35 kU/L 12 Aspergilus Niger Ige Allergen QL <0.35 kU/L 13 Immunoglobulin E (Ige) 37.7 kU/L <= 214 14 Immunoglobulins 12/02/2019 [facility] Immunoglobulin G 667 Abnormal 767 - 15 Serum Quant [address] mg/dL [address] [place] [address] [phone] Immunoglobulin M 90 mg/dL 37 - 286 Immunoglobulin A 166 mg/dL 61 - 356 T&B Cell 12/02/2019 [facility] CD45 Total 1.60 thou/mcL 0.82- 2.[address] [place] [address] [phone] Percent CD3 Cells (T Cells) 73 % [...] Comment See Comment 16 Diptheria Igg 12/02/2019 [facility] Diphtheria IgG Positive [address] [place] [address] [phone] Diphtheria IgG Value 0.05 IU/mL 18 Tetanus Toxoid Igg 12/02/2019 [facility] Tetanus Toxoid Positive 19 Antibody,S [address] [place] [place] [address] [phone] Tetanus Toxoid IgG Value 1.29 IU/mL 20 S.Pneumoniae Igg 12/02/2019 [facility] S. pneumoniae 3.7 g/mL >=2.3 AB [address] Type 1 [place] [address] [phone] S. pneumoniae Type 2 IgG AB 0.7 [...] AB 12.2 g/mL >=1.7 21 Lymphocyte 12/02/2019 [facility] Mitogens See Comment 22 Proliferation PNL [address] [place] [address] [phone] Viab of Lymphs at Day 0 72.7 % Abnormal >=75.0 Max Prolif of PWM as %CD45 18.4 % >=4.5 Max Prolif of PWM as %CD3 18.9 % >=3.5 Max Prolif of PWM as %CD19 32.0 % >=3.9 Max Prolif of Pha as %CD45 67.5 % >=49.9 Max Prolif of Pha as %CD3 71.2 % >=58.5 23 Laboratory test 10/23/2019 [facility] Alpha 1 121 mg/dL 100 - [address] Antitrypsin A1a 190 [place] [address] [phone] Anti Nuclear Antibody 0.2 U 25 Anca Panel For 10/23/2019 [facility] Myeloperoxidase AB < 0.2 U [address] [place] [address] [phone] Proteinase 3 AB < 0.2 U 27 CBC Auto 10/23/2019 [facility] White Blood 4.8 10^3/uL Normal 3.5-10.[address] [place] [address] [phone] Red Blood Count 4.51 10^6/uL Normal 3.70-4.87 [...] Blood Cells % 0.1 Laboratory test 10/23/2019 [facility] C Reactive 1.01 Normal < 8.[address] Protein mg/[place] [address] [phone] Hypersensitivity 10/23/2019 [facility] Aspergillus 53.6 <= 102 [address] fumigatus IgG mg/[place] [address] Ab [phone] Micropolyspora faeni IgG Ab 2.9 mg/L <=13.2 29 Thermoactinomyces vulgaris IgG 5.8 mg/L <=23.9 30 Immunoglobulins 10/23/2019 [facility] Immunoglobulin G 671 Abnormal 767 - 31 Serum Quant [address] mg/dL [address] [place] [address] [phone] Immunoglobulin M 92 mg/dL 37 - 286 Laboratory test 10/23/2019 [facility] Immunoglobulin E 33.4 kU/ L <= [address] (Ige) [place] [address] [phone] Immunoglobulin A 170 mg/dL 61 - 356 Rheumatoid Factor < 10 IU/mL Normal <15 1 Class 0 (Negative <0.35) Test Performed by: [place] [address] Quill Layer: Jeremie Jaffe M.D. Ph.D.; CLIA# [id number] 2 Class 0 (Negative <0.35) Test Performed by: [place] [address] Quill Layer: Jeremie Jaffe M.D. Ph.D.; CLIA# [id number] 3 Class 0 (Negative <0.35) Test Performed by: [place] [address] Quill Layer: Jeremie Jaffe M.D. Ph.D.; CLIA# [id number] 4 Class 0 (Negative <0.35) Test Performed by: [place] [address] Quill Layer: Jeremie Jaffe M.D. Ph.D.; CLIA# [id number] 5 Class 0 (Negative <0.35) Test Performed by: [place] [address] Quill Layer: Jeremie Jaffe M.D. Ph.D.; CLIA# [id number] 6 Class 0 (Negative <0.35) Test Performed by: [place] [address] Quill Layer: Jeremie Jaffe M.D. Ph.D.; CLIA# [id number] 7 Class 0 (Negative <0.35) Test Performed by: [place] [address] Quill Layer: Jeremie Jaffe M.D. Ph.D.; CLIA# [id number] 8 Class 0 (Negative <0.35) Test Performed by: [place] [address] Quill Layer: Jeremie Jaffe M.D. Ph.D.; CLIA# [id number] 9 Class 0 (Negative <0.35) Test Performed by: [place] [address] Quill Layer: Jeremie Jaffe M.D. Ph.D.; CLIA# [id number] 10 Class 0 (Negative <0.35) Test Performed by: [place] [address] Quill Layer: Jeremie Jaffe M.D. Ph.D.; CLIA# [id number] 11 Class 0 (Negative <0.35) Test Performed by: [place] [address] Quill Layer: Jeremie Jaffe M.D. Ph.D.; CLIA# [id number] 12 Class 0 (Negative <0.35) Test Performed by: [place] [address] Quill Layer: Jeremie Jaffe M.D. Ph.D.; CLIA# [id number] 13 Class 0 (Negative <0.35) Test Performed by: [place] [address] Quill Layer: Jeremie Jaffe M.D. Ph.D.; CLIA# [id number] 14 Test Performed by: [place] [address] Quill Layer: Jeremie Jaffe M.D. Ph.D.; CLIA# [id number] 15 Test Performed by: [place] [address] Quill Layer: Jeremie Jaffe M.D. Ph.D.; CLIA# [id number] 16 RESULT: Reviewed by: Job Reyes M.D. ADDITIONAL INFORMATION Reference values implemented February 24, 2013. This test was developed using an analyte specific reagent. Its performance characteristics were determined by [facility] in a manner consistent with CLIA requirements. This test has not been cleared or approved by the U.S. Food and Drug Administration. Test Performed by: [address] [address] Quill Layer: Jeremie Jaffe M.D. Ph.D.; CLIA# [id number] 17 REFERENCE VALUE Vaccinated: Positive (>= 0.01 IU/mL) Unvaccinated: Negative (< 0.01 IU/mL) 18 ADDITIONAL INFORMATION This test was developed and its performance characteristics determined by [facility] in a manner consistent with CLIA requirements. This test has not been cleared or approved by the U.S. Food and Drug Administration. Test Performed by: [place] [address] Quill Layer: Jeremie Jaffe M.D. Ph.D.; CLIA# [id number] 19 REFERENCE VALUE Vaccinated: Positive (>= 0.01 IU/mL) Unvaccinated: Negative (< 0.01 IU/mL) 20 ADDITIONAL INFORMATION This test was developed and its performance characteristics determined by [facility] in a manner consistent with CLIA requirements. This test has not been cleared or approved by the U.S. Food and Drug Administration. Test Performed by: [facility] [place] [address] Quill Layer: Jeremie Jaffe M.D. Ph.D.; CLIA# [id number] 21 Either of the two following conditions [...] its performance characteristics determined by [facility] in a manner consistent with CLIA requirements. This test has not been cleared or approved by the U.S. Food and Drug Administration. Test Performed by: [place] [address] Quill Layer: Jeremie Jaffe M.D. Ph.D.; CLIA# [id number] 22 Normal lymphocyte proliferative responses to PHA [...] using "critical ambient shipping boxes" available through [facility] ([facility]) inventory to ensure optimal transport of critical samples used for functional cellular assays. This test was developed using an analyte specific reagent. Its performance characteristics were determined by [facility] in a manner consistent with CLIA requirements. This test has not been cleared or approved by the U.S. Food and Drug Administration. 23 Test Performed by: [place] [id number] Quill Layer: Jeremie Jaffe M.D. Ph.D.; CLIA# [id number] 24 Test Performed by: [place] [address] Quill Layer: Jeremie Jaffe M.D. Ph.D.; CLIA# [id number] 25 REFERENCE VALUE <=1.0 (Negative) Test Performed by: [facility] [place] [address] Quill Layer: Jeremie Jaffe M.D. Ph.D.; CLIA# [id number] 26 REFERENCE VALUE <0.4 (Negative) 27 REFERENCE VALUE <0.4 (Negative) Test Performed by: [facility] [place] [address] Quill Layer: Jeremie Jaffe M.D. Ph.D.; CLIA# [id number] 28 ADDITIONAL INFORMATION This test was developed and its performance characteristics determined by [facility] in a manner consistent with CLIA requirements. This test has not been cleared or approved by the U.S. Food and Drug Administration. 29 ADDITIONAL INFORMATION This test was developed and its performance characteristics determined by [facility] in a manner consistent with CLIA requirements. This test has not been cleared or approved by the U.S. Food and Drug Administration. 30 ADDITIONAL INFORMATION This test was developed and its performance characteristics determined by [facility] in a manner consistent with CLIA requirements. This test has not been cleared or approved by the U.S. Food and Drug Administration. Test Performed by: [place] [address] Quill Layer: Jeremie Jaffe M.D. Ph.D.; CLIA# [id number] 31 Test Performed by: [place] [address] Quill Layer: Jeremie Jaffe M.D. Ph.D.; CLIA# [id number] 32 Test Performed by: [place] [address] Quill Layer: Jeremie Jaffe M.D. Ph.D.; CLIA# [id number] Procedures Date Code Description Status 11/12/2019 59744 Sleep Study Unattended,HRT Rate,Oxygen Sat,Resp Completed Effort/Airflow 10/26/2019 84759405 Mammogram Completed 06/04/2019 11251384 Colonoscopy Completed Medical Devices Description No Information Available Encounters Type Date Location Provider Dx Diagnosis Office Visit 01/07/2020 [facility] And Ainsley Karolyn, G47.33 Obstructive sleep 3:00p Sleep Services Of apnea (adult) Dance Historian (pediatric) R91.8 Other nonspecific abnormal finding of lung field J45.909 Unspecified asthma, uncomplicated Office Visit 11/23/2019 3:30p Pulmonology And Ainsley R91.8 Other nonspecific Sleep Services Of MD Karolyn abnormal finding Dance Historian of lung field A31.0 Pulmonary mycobacterial infection J45.909 Unspecified asthma, uncomplicated G47.33 Obstructive sleep apnea (adult) (pediatric) Office Visit 10/23/2019 11:00a Pulmonology And Ainsley R91.8 Other nonspecific Sleep Services Of MD Karolyn abnormal finding Dance Historian of lung field A31.0 Pulmonary mycobacterial infection J45.909 Unspecified asthma, uncomplicated R06.83 Snoring J41.0 Simple chronic bronchitis [facility] 2:40p For Infectious Garth Dai mycobacterial Diseases infection R91.8 Other nonspecific abnormal finding of lung field Office Visit 10/08/2019 8:20a [facility] Internal Alexandra A31.0 Pulmonary Medicine - [place], DO mycobacterial [address] infection Z12.31 Encntr screen mammogram for malignant neoplasm of breast H53.8 Other visual disturbances Office Visit 09/04/2019 [facility] Bairon Vegas A31.0 Pulmonary 10:04a [...] M.D. 10/08/2019 A31.0 Pulmonary mycobacterial infection Alexandra Vega, 10/08/2019 R91.8 Other nonspecific abnormal finding of Bairon Dai M.D. lung field 10/08/2019 Z12.31 Encounter for screening mammogram for Alexandra VegaDO malignant neoplasm of breast 10/08/2019 H53.8 Other visual disturbances Alexandra Michelleantonio, 09/04/2019 A31.0 Pulmonary mycobacterial infection Bairon Dai M.D. 09/04/2019 R06.00 Dyspnea, unspecified Bairon Dai M.D. 09/04/2019 F32.9 Major depressive disorder, single Bairon Dai M.D. episode, unspecified Plan of Treatment Future Appointment(s):01/13/2020 11:10 am - Bairon Dai M.D. at [facility] For Infectious Etdhbrcc07/05/2020 - Ainsley Parr MDG47.33 Obstructive sleep apnea (adult) (pediatric)Follow up:3 khotbuF93.8 Other nonspecific abnormal finding of lung vuobvS29.909 Unspecified asthma, uncomplicated Functional Status Description No Information Available Mental Status Description No Information Available Referrals Refer to Dr Reason for Referral Status Appt Wolf Campos MD Sent [address] [place] [address] [place] [address] [phone] Bairon Dai MD Scheduled 01/07/[address] [place] [address] [place] [address] [phone] Michael Kelly MD Pending OV note to be signed. Triage sent. 10/16/19 Sent L[address] [place] [address] [phone] Ainsley Parr MD 59 year old woman with diagnosis of ARIEL by Sent 2018 bronchoscopy new lung lesions [address] [place] [address] [phone]
--- OUTSIDE RECORDS SUMMARY | 2020-01-17 12:25 | XMS REPORT | Continuity of Care Document ---
:1960 External Reference #:[id number] Author Name Fly Prieto M.D. 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 [phone] Medicine Problems Active Problems Provider Date Chronic lung disease Onset: Hypercholesterolemia Onset: Sleep apnea Onset: Dementia Onset: Social History Type Date Description Comments Sex Unknown ETOH Use Denies alcohol use Tobacco Use Start: Unknown Patient has never smoked Recreational Drug Use Regularly uses Marijuana Smoking Status Reviewed: 11/26/19 Patient has never smoked Allergies, Adverse Reactions, Alerts Active Allergies Reaction Severity Comments Date Morphine 11/26/2019 Codeine 11/26/2019 Medications Active Medications SIG Qnty Indications Ordering Provider Date Symbicort Unknown 80-4.5mcg/Act Aerosol Albuterol Sulfate HFA inhale 1 To 2 Unknown puffs by mouth 108(90Base) mcg/Act and Into The Aerosol Lungs every 4 hours if needed Loratadine Unknown 10mg Tablets Ibuprofen Macqueen Bairon 600mg Tablets D M.D. Montelukast Sodium Unknown 10mg Tablets Immunizations Description No Information Available Vital Signs Description No Information Available Results Description No Information Available Procedures Description No Information Available Medical Devices Description No Information Available Encounters Description No Information Available Assessments Date Code Description Provider 11/26/2019 H43.813 Vitreous degeneration, bilateral Fly Prieto M.D. 11/26/2019 H25.13 Age-related nuclear cataract, bilateral Fly Prieto M.D. Plan of Treatment 11/26/2019 - Fly Prieto M.D.H43.813 Vitreous degeneration, bilateralComments:Smoking can increase the risk of developing or worsening any eye related disease, as well as affect your overall health. If you are a smoker , we strongly recommend that you quit.If you are not a smoker, we strongly recommend that you do not start. You have a Posterior Vitreous Detachment. If you have any changes in your floaters or flashing lights, please contact this office.Follow up:1 Year Follow Up DFE You can expect to have your eyes dilated at your next visit. If Dr. Prieto orders any additional testing, it may require extra time. We recommend that you bring sunglasses, as dilation drops often make you light sensitive until they wear off. We always recommend you bring someone to drive you home if you are uncomfortable driving with your eyes dilated. If you have any questions before your next visit, feel free to call our office at .H25.13 Age-related nuclear cataract, bilateralComments:You have been diagnosed with cataracts. If you are happy with your vision as it is now, then we willsee you at your next scheduled appointment. If you feel like your vision is getting worse before your scheduled appointment, please call Smita at [phone]. Functional Status Description No Information Available Mental Status Description No Information Available Referrals Description No Information Available
--- OUTSIDE RECORDS SUMMARY | 2020-01-17 12:25 | XMS REPORT | Continuity of Care Document ---
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 Onset: H/O: pneumonia XENIA Figueroa Onset: 12/02/2019 Social History Type Date Description Comments Sex Unknown Allergies, Adverse Reactions, Alerts Active Allergies Reaction Severity Comments Date Morphine 11/19/2019 Codeine 11/19/2019 Medications Active Medications SIG Qnty Indications Ordering Date Provider Flovent HFA 1 puff twice a 10.600gm Ángela Weinstein, 01/15/2020 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/Act 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 Aerosol Montelukast Sodium 1 by mouth 30tabs Jazmine, 10/26/2019 10mg every night JESS Longoria Tablets Ibuprofen 1 by mouth 20tabs Suhas, 10/08/2019 600mg Tablets twice daily if Bairon Khan MD needed Bupropion take 1 tablet Unknown Hydrochloride ER (SR) by mouth once daily 100mg Tablets ER 12HR Symbicort Unknown 80-4.5mcg/Act Aerosol Ventolin HFA Unknown 108(90Base) mcg/Act Aerosol Vitamin C Unknown 500mg Capsules Zyrtec-D Allergy & Take 1 tablet Unknown Congestion every 12 hours 5-120mg Tablets ER 12HR Diazepam Unknown 5mg Tablets Immunizations CPT Code Status Date Vaccine Lot # [id number] Given 12/02/2019 Pneumococcal Vaccine 2Yrs Or Older [id number] Vital Signs Date Vital Result Comment 01/15/2020 4:28pm BP Systolic 116 mmHg BP Diastolic 72 mmHg Height 60 inches 5'0" Heart Rate 81 /min Respiratory Rate 16 /min Body Temperature 96.6 F O2 % BldC Oximetry 97 % 12/02/2019 8:45am BP Systolic 114 mmHg BP Diastolic 68 mmHg Height 60 inches 5'0" Weight 140.00 lb BMI (Body Mass Index) 27.3 kg/m2 Heart Rate 81 /min O2 % BldC Oximetry 97 % Results Description No Information Available Procedures Description No Information Available Medical Devices Description No Information Available Encounters Type Date Location Provider Dx Diagnosis Office Visit 12/02/2019 [place] [facility] [place] Z87.01 Personal history of 8:30a XENIA Cullen pneumonia (recurrent) A31.0 Pulmonary mycobacterial infection J30.89 Other allergic rhinitis Assessments Date Code Description Provider 01/15/2020 J30.89 Other allergic rhinitis Ángela Weinstein NP 01/15/2020 A31.0 Pulmonary mycobacterial infection Ángela Weinstein NP 01/15/2020 Z87.01 Personal history of pneumonia Ángela Weinstein NP (recurrent) 12/02/2019 Z87.01 Personal history of pneumonia KRISTINE Figueroa (recurrent) 12/02/2019 A31.0 Pulmonary mycobacterial infection Ting Cullen RPA-C 12/02/2019 J30.89 Other allergic rhinitis XENIA Figueroa Plan of Treatment Future Appointment(s):04/18/2020 10:30 am - X[facility]IA [facility]ueroa at [facility]/15/2020 - Ángela Weinstein NPJ30.89 Other allergic aghteklpS20.0 Pulmonary mycobacterial lwhzzlqjoX01.01 Personal history of pneumonia (recurrent ) Functional Status Description No Information Available Mental Status Description No Information Available Referrals Description No Information Available
[2020-01-17 12:56] VITALS: BP 130/72
== END 2020-01-17 13:42 | disposition home or self-care (01) ==
LOC: ED 10:05
DX: R05 Cough (principal); R07.89 Other chest pain; R11.10 Vomiting, unspecified; J45.909 Unspecified asthma, uncomplicated; F41.9 Anxiety disorder, unspecified; F32.9 Major depressive disorder, single episode, unspecified; Z79.51 Long term (current) use of inhaled steroids; Z79.899 Other long term (current) drug therapy; Z88.5 Allergy status to narcotic agent
CPT/HCPCS: 36415; 71045; 80053; 83605; 84484; 85025; 86140; 93005; 99283